=== PATIENT | male | born 1985 | race Caucasian/White ===

== ENCOUNTER 2023-04-11 23:25 | Emergency (ER) | payer OTHER, SELFPAY ==
[2023-04-11] MEDS: ONDANSETRON 2 MG/ML inj 4 MG IVP (23:50)
[2023-04-11] MEDS: 0.9 % SODIUM CHLORIDE 1000 ml 1,000 ML IV (23:50)
[2023-04-11 23:53] LABS: Lactate* 3.2 mmol/L (0.5-1.9)
[2023-04-11 23:55] LABS: Appearance Urine Clear (Clear); Bilirubin Urine Negative (Negative); Blood Urine Negative (Negative); Color Urine Yellow (Yellow); Glucose Urine 2+ (Negative); Ketones Urine 4+ (Negative); Leukocyte Esterase Urine Negative (Negative); Nitrite Urine Negative (Negative); Protein Urine Negative (Negative); Urobilinogen Urine 0.2 (0.2-1.0)
[2023-04-11 23:56] LABS: Basophils Percent Auto 0.3 % (0.0-3.0); Eosinophils Percent Auto 0.2 % (0.0-7.0); Hematocrit 47.8 % (37.0-53.0); Hemoglobin* 16.2 gm/dL (13.5-17.5); Immature Granulocytes Pct Auto 0.7 %; Lymphocytes Percent Auto 11.4 % (20-44); Mean Corpuscular HGB Conc 34 gm/dL (32-36); Mean Corpuscular Hemoglobin 30 pg (26-34); Mean Corpuscular Volume 89 fL (80-100); Monocytes Percent Auto 7.6 % (0.0-11.0); Neutrophils Percent Auto 79.8 % (42.0-72.0); Platelet Count* 230 K/uL (140-440); RDW Coefficient of Variation % 11.8 % (11.5-15.5); Red Blood Count 5.38 m/uL (4.30-5.90); Slide Review Reflex No; White Blood Count* 17.43 K/uL (4.50-11.00)
[2023-04-12] VITALS (8 sets, daily range): BP systolic 115–170; BP diastolic 60–92; PULSE 93–133; RESP 16–18; TEMP 36.6–36.7; O2SAT 96–99; BMI 24.3
[2023-04-12 00:02] LABS: RBC Urine 0-2 (0-2); WBC Urine 0-2 (0-5)
[2023-04-12 00:09] LABS: Chloride* 94 mmol/L (96-114); Potassium* 5.6 mmol/L (3.6-5.1); Sodium* 131 mmol/L (135-149)
[2023-04-12 00:12] LABS: Anion Gap 29 mEq/L (7-15); Blood Urea Nitrogen* 25 mg/dL (5-24); Estimated Glomerular Filt Rate 99 ml/min
--- NOTE | 2023-04-12 00:15 | ED.GENADULT ---
HPI - General Adult General Chief complaint: Diabetic Related Problem Stated complaint: Diabetic-vomiting -feeling ill Time Seen by Provider: 04/11/23 23:58 Source: patient Mode of arrival: ambulatory Limitations: no limitations History of Present Illness HPI narrative: 29-year-old male with known history of type 1 diabetes presents to the emergency department with a 4 hour history of nausea and vomiting. Admits to sporadic checking of blood sugars, none today. He reports good compliance with his Lantus but does not do a great job taking his mealtime insulins or use his sliding scale, especially since he is not regularly checking his blood sugars. He did not take any mealtime insulin with lunch or dinner today, but did take 15 units with breakfast though he did not check his sugar. No symptoms of infection. There is no fever, no dysuria, no productive cough. No known illness exposures or recent trauma. He does have a history of DKA in the past but it has been several years, he reports that the records would be in [place]. He denies any long-term complications from his diabetes such as chronic kidney disease, cardiovascular disease. He does report some retinopathy but he is not any type of treatment for it. It sounds as though he has been prescribed a statin in the past which she does not use. He does not have a continues glucose monitor or insulin pump. He suspects that he is in DKA as his primary symptom when this happens is nausea and vomiting. He does not report any abdominal pain, altered mental status or neurological changes. Past medical history notable for type 1 diabetes with retinopathy. Denies any other long-term health problems or recent surgeries. His only home medications are Lantus 36 units in the morning, NovoLog with meals. Typical mealtime doses are 10-15 units. Prescribed a statin, does not use. He does vape and drinks about 2 alcoholic beverages per week. ROS notable for the nausea and vomiting, otherwise denies times 12 systems. Related Data Home Medications Medication Instructions Recorded Confirmed insulin aspart U-100 100 unit/mL 1 sliding scale dose subcut 12/03/22 12/03/22 subcutaneous solution (Novolog USEASDIRECTD U-100 Insulin aspart) Previous Rx's Medication Instructions Recorded insulin glargine 100 unit/mL (3 36 unit (0.36 mL) subcut QAM #9 mL 12/03/22 mL) subcutaneous pen (Lantus Solostar U-100 Insulin) Allergies Allergy/AdvReac Type Severity Reaction Status Date / Time No Known Drug Allergies Allergy Verified 12/03/22 14:52 [facility] Medical History (Updated 04/12/23 @ 07:10 by Kimmy Youngblood MD) Type 1 diabetes mellitus with retinopathy ?E10.319 - Type 1 diabetes mellitus with unspecified diabetic retinopathy without macular edema (ICD-10) Surgical History (Updated 04/12/23 @ 00:20 by Landon Ho RN) No significant past surgical history Social History Smoking Status: Former smoker Second hand tobacco smoke exposure: No How often do you have a drink containing alcohol: never How often do you have six or more drinks on one occasion: Never AUDIT-C Alcohol total score: 0 Non-prescribed substance use: denies use Exam Const: Vital Signs, click to edit/add: Vital Signs - 24 hr 04/12/23 00:00 04/12/23 00:00 04/12/23 00:03 Temperature 98.1 F Pulse Rate [Right Pulse Oximeter] 133 H 125 H Respiratory Rate 18 18 Blood Pressure [Ri ght Upper Arm] 129/63 170/92 H Pulse Oximetry 99 99 99 Oxygen Delivery Me thod Room Air Room Air 04/12/23 00:30 04/12/23 01:00 04/12/23 02:00 Temperature 98.1 F 98.1 F 98.1 F Pulse Rate [Right Pulse Oximeter] 128 H 132 H 132 H Respiratory Rate 18 18 18 Blood Pressure [Ri ght Upper Arm] 126/60 124/71 118/74 Pulse Oximetry 99 99 99 Oxygen Delivery Me thod Room Air Room Air Room Air Documenting provider has reviewed patient's vital signs: yes Common normals: no apparent distress and alert General appearance: cooperative, comfortable and well kempt Orientation/consciousness: Yes awake HENMT: Common normals: normocephalic Head and scalp: normocephalic Face and sinus: normal facial exam Mouth: oral and palatal mucosa normal Throat: posterior oropharynx normal Eye: Common normals: conjunctivae normal General eye: normal appearance of both eyes Conjunctiva: conjunctiva(e) normal Neck & C-Spine: Common normals: full ROM and no lymphadenopathy Resp: Common normals: normal respiratory effort, no use of accessory muscles and clear to auscultation bilaterally Effort & inspection: able to speak in complete sentences Auscultation: clear to auscultation bilaterally Cardio: Common normals: regular rate, regular rhythm, S1 normal heart sound, S2 normal heart sound and no murmurs Rate: regular rate Rhythm: regular rhythm Heart sounds: S1 normal and S2 normal GI: Common normals: Normal to inspection, nondistended, normoactive bowel sounds present, soft to palpation, non-tender, no hepatosplenomegaly and no masses Palpation: soft and no hepatosplenomegaly Extremity: Common normals: normal to inspection and normal capillary refill General: normal exam except as noted Neuro: Sensorium/orientation: awake and alert Speech: speech normal Motor exam: strength 5/5 throughout and no movement abnormalities noted Psych: Appearance: well kempt Attitude: engaged Activity/motor behavior: appropriate eye contact Mood and affect: euthymic mood Insight: insight good Judgement: judgment good Skin: Common normals: no rashes or lesions noted General skin exam: no rashes or lesions noted Course Course ED Course: Normal saline bolus and Zofran were given prior to my arrival. by the time of my interview, he reports that he is already feeling better. Await labs. Reevaluation(s) Time of Reevaluation #1: 00:31 Reevaluation #1: As expected, initial workup showing diabetic ketoacidosis, severe acidosis with high blood sugar and electrolyte abnormalities. I do not see any indications for further infection workup despite the leukocytosis as it seems as though this is related to the DKA. Remainder of exam was normal, do not recommend imaging studies at this time. The powerhouse laborer has let me know that I cannot admit him to the hospital, as I do not have CCU availability tonight based on staffing ratios. I do feel comfortable managing a diabetic ketoacidosis patient in my emergency department with my prior skill set. Will begin insulin drip after bolus, 2 L of normal saline given. Recheck basic metabolic panel and venous blood gases every 2 hours, hourly Accu-Cheks. Suspect that we will have his acidosis corrected in gap closed around breakfast time. Time of Reevaluation #2: 05:12 Reevaluation #2: Patient continuing to do well. Was transitioned onto glucose drip at 3:00 a.m.. Blood sugars continue to fall well. Most recent blood sugar is just under 200, will reduce insulin drip to 4 units/hour, continue half-normal saline glucose plus potassium at 100 mL/hour, hourly Accu-Cheks and repeat basic metabolic panel and PH at 6:30 a.m.. Marked improvement and bicarb since the draw, gap may be closed at 6:30 a.m.. Time of Reevaluation #3: 08:28 Reevaluation #3: 630 labs reviewed, and I got close nicely, acidosis resolved. Patient has been feeling better. He tolerated a full breakfast, no return of nausea and vomiting. He has had excellent urine output. Blood sugars remain well controlled. He would like to go home. This is certainly reasonable. Will not benefit from admission at this point as he is no longer in DKA. Stressed the importance of insulin compliance. Rest for today, lots of fluids. Be aggressive with afternoon mealtime insulin, alarm symptoms reviewed. All questions answered. He has no additional concerns. Will follow-up with supervisor border department regarding continues glucose monitor and further management. Vital Signs Vital signs: Initial Vital Signs Pulse Rate 133 H 04/12/23 00:00 Pulse Rhythm Regular 04/12/23 00:00 Pulse Strength 3+ Normal 04/12/23 00:00 Respiratory Rate 18 04/12/23 00:00 Respiratory Effort Normal, Spontaneous, Non-Labored 04/12/23 00:00 Respiratory Depth Normal 04/12/23 00:00 Respiratory Pattern Normal 04/12/23 00:00 Blood Pressure 129/63 04/12/23 00:00 Blood Pressure Mean 85 04/12/23 00:00 Blood Pressure Position Supine 04/12/23 00:00 Pulse Oximetry 99 04/12/23 00:00 Oxygen Delivery Method Room Air 04/12/23 00:00 Vital Signs Pulse Rate 133 H 04/12/23 00:00 Respiratory Rate 18 04/12/23 00:00 Blood Pressure 129/63 04/12/23 00:00 Pulse Oximetry 99 04/12/23 00:00 Oxygen Delivery Method Room Air 04/12/23 00:00 Temperature 98.1 F 04/12/23 02:00 Pulse Rate 132 H 04/12/23 02:00 Respiratory Rate 18 04/12/23 02:00 Blood Pressure 118/74 04/12/23 02:00 Pulse Oximetry 99 04/12/23 02:00 Oxygen Delivery Method Room Air 04/12/23 02:00 Medical Decision Making Lab Data Lab results reviewed: Yes I reviewed the patient's lab results Lab results narrative: Leukocytosis likely related to DKA. Significant acidosis and hyperglycemia. Follow-up metabolic panels and blood gases showing expected improvement in pH initially, then improvement in both pH and bicarb. Transitioned onto glucose drip in conjunction with insulin drip which was also lowered to match glucose demand. This will be done until anion gap properly closes an acidosis resolved. Labs: Lab Results 04/11/23 04/11/23 04/12/23 Range/Units 23:40 23:46 00:17 WBC 17.43 H (4.50-11.00) K/uL RBC 5.38 (4.30-5.90) m/uL Hgb 16.2 (13.5-17.5) gm/dL Hct 47.8 (37.0-53.0) % MCV 89 (80-100) fL MCH 30 (26-34) pg MCHC 34 (32-36) gm/dL RDW Coeff of Ramez 11.8 (11.5-15.5) % Plt Count 230 (140-440) K/uL Neut % (Auto) 79.8 H (42.0-72.0) % Lymph % (Auto) 11.4 L (20-44) % [place] % (Auto) 7.6 (0.0-11.0) % Eos % (Auto) 0.2 (0.0-7.0) % Baso % (Auto) 0.3 (0.0-3.0) % Neut # (Auto) 13.90 H (1.7-7.0) K/uL Lymph # (Auto) 2.00 (0.90-2.90) K/uL [place] # (Auto) 1.30 H (0.00-0.90) K/UL Eos # (Auto) 0.00 (0.00-0.50) K/uL Baso # (Auto) 0.10 (0.00-0.30) K/uL Abs Immat Gran (auto) 0.10 (0.00-0.30) K/uL Imm/Tot Granulo (auto) 0.7 % VBG pH 7.090 L* (7.32-7.43) VBG pCO2 43 (40-50) mmHG VBG pO2 29.0 (25-47) mmHG VBG HCO3 13 L (21-28) mmol/L Sodium 131 L (135-149) mmol/L Potassium 5.6 H (3.6-5.1) mmol/L Chloride 94 L (96-114) mmol/L Carbon Dioxide 8 L* (20-32) mmol/L Anion Gap 29 H (7-15) mEq/L BUN 25 H (5-24) mg/dL Creatinine 1.0 (0.5-1.5) mg/dL Estimated Creat Clear 96.90 Estimated GFR 99 ml/min Glucose (60-115) mg/dL Lactate 3.2 H (0.5-1.9) mmol/L Calcium 10.0 (8.4-10.6) mg/dL Urine Color Yellow (Yellow) Urine Appearance Clear (Clear) Urine pH 5.0 (5.0-8.5) Ur Specific [place] 1.020 (1.000-1.030) Urine Protein Negative (Negative) Urine Glucose (UA) 2+ A (Negative) Urine Ketones 4+ A (Negative) Urine Blood Negative (Negative) Urine Nitrite Negative (Negative) Urine Bilirubin Negative (Negative) Urine Urobilinogen 0.2 (0.2-1.0) Ur Leukocyte Esterase Negative (Negative) Urine RBC 0-2 (0-2) Urine WBC 0-2 (0-5) Ur Squamous Epith Cells None (None-Few) Urine Bacteria None (None) Lab Acknowledgement Test Added 04/12/23 04/12/23 04/12/23 Range/Units 02:29 04:30 06:28 WBC (4.50-11.00) K/uL RBC (4.30-5.90) m/uL Hgb (13.5-17.5) gm/dL Hct (37.0-53.0) % MCV (80-100) fL MCH (26-34) pg MCHC (32-36) gm/dL RDW Coeff of Ramez (11.5-15.5) % Plt Count (140-440) K/uL Neut % (Auto) (42.0-72.0) % Lymph % (Auto) (20-44) % [place] % (Auto) (0.0-11.0) % Eos % (Auto) (0.0-7.0) % Baso % (Auto) (0.0-3.0) % Neut # (Auto) (1.7-7.0) K/uL Lymph # (Auto) (0.90-2.90) K/uL [place] # (Auto) (0.00-0.90) K/UL Eos # (Auto) (0.00-0.50) K/uL Baso # (Auto) (0.00-0.30) K/uL Abs Immat Gran (auto) (0.00-0.30) K/uL Imm/Tot Granulo (auto) % VBG pH 7.180 L* 7.262 L 7.324 (7.32-7.43) VBG pCO2 35 L 37 L 41 (40-50) mmHG VBG pO2 30.7 43.2 25.1 (25-47) mmHG VBG HCO3 13 L 17 L 21 (21-28) mmol/L Sodium 136 134 L 135 (135-149) mmol/L Potassium 4.9 4.6 5.0 (3.6-5.1) mmol/L Chloride 103 105 105 (96-114) mmol/L Carbon Dioxide 12 L 14 L 20 (20-32) mmol/L Anion Gap 21 H 15 10 (7-15) mEq/L BUN 23 19 17 (5-24) mg/dL Creatinine 0.9 0.7 0.7 (0.5-1.5) mg/dL Estimated Creat Clear 107.67 138.43 138.43 Estimated GFR 112 121 121 ml/min Glucose 342 H 215 H 172 H (60-115) mg/dL Lactate (0.5-1.9) mmol/L Calcium 9.1 8.7 8.9 (8.4-10.6) mg/dL Urine Color (Yellow) Urine Appearance (Clear) Urine pH (5.0-8.5) Ur Specific [place] (1.000-1.030) Urine Protein (Negative) Urine Glucose (UA) (Negative) Urine Ketones (Negative) Urine Blood (Negative) Urine Nitrite (Negative) Urine Bilirubin (Negative) Urine Urobilinogen (0.2-1.0) Ur Leukocyte Esterase (Negative) Urine RBC (0-2) Urine WBC (0-5) Ur Squamous Epith Cells (None-Few) Urine Bacteria (None) Lab Acknowledgement Discharge Plan Discharge Clinical Impression: Diabetic ketoacidosis Patient Disposition: Home w/ Parent or Adult Condition: Improved Instructions: Diabetic Hyperglycemia (ED) Additional Instructions: As we discussed, your electrolytes, acid-base balance and blood sugar were very out of line. Your given IV fluids, IV insulin, then transitioned on a combination of insulin plus glucose until your electrolytes and acid-base balance corrected. Because there were no beds in the hospital, we managed this in the emergency department. Thankfully, all of these corrected nicely with aggressive management. I am glad that your feeling better. You have already been given your basal insulin for the day and your breakfast insulin. I have given you a note off of work today. You should make an appointment with your supervisor border department to discuss a continuous glucose monitor as insurance has become a lot more relaxed about covering these. Insulin pumps are still quite a usman but I suspect you would benefit from 1 of those as well, especially with this recent episode of DKA. Your likely to be very fatigued today. Drink lots of fluids, no alcohol for the next few days. I would recommend that you go back to work tomorrow and follow your previously recommended insulin regimen. Activity Level: Activity as Tolerated Discharge Diet: Regular Prescriptions: No Action insulin aspart U-100 [Novolog U-100 Insulin aspart] 100 unit/mL solution 1 sliding scale dose subcut USEASDIRECTD insulin glargine [Lantus Solostar U-100 Insulin] 100 unit/mL (3 mL) insulin pen 36 unit subcut QAM Qty: 9 0RF Follow Up/Referrals: Provider,Not a Local [Primary Care Provider] - Stand Alone Forms: [employer] Info Instructions
[2023-04-12 00:16] LABS: Carbon Dioxide* 8 mmol/L (20-32)
[2023-04-12 00:22] LABS: HCO3 VBG 13 mmol/L (21-28); PCO2 VBG 43 mmHG (40-50)
[2023-04-12] MEDS: INSULIN INF 100 UNIT/100 ML 100 UNIT/100 ML BAG 6 UNIT IVPB (00:53)
[2023-04-12] MEDS: 0.9 % SODIUM CHLORIDE 1000 ml 1,000 ML IV (00:54)
--- NOTE | 2023-04-12 02:00 | ED.NURSE ---
pt. blood glucose 348. decreased insulin gtt down to 5units/hr. witnessed by 2nd RN.
[2023-04-12 02:31] LABS: HCO3 VBG 13 mmol/L (21-28); PCO2 VBG 35 mmHG (40-50); PO2 VBG 30.7 mmHG (25-47)
[2023-04-12 02:46] LABS: Chloride* 103 mmol/L (96-114); Potassium* 4.9 mmol/L (3.6-5.1); Sodium* 136 mmol/L (135-149)
[2023-04-12 02:49] LABS: Anion Gap 21 mEq/L (7-15); Carbon Dioxide* 12 mmol/L (20-32); Creatinine* 0.9 mg/dL (0.5-1.5); Est. Creatinine Clearance* 107.67; Estimated Glomerular Filt Rate 112 ml/min
[2023-04-12 02:50] LABS: Blood Urea Nitrogen* 23 mg/dL (5-24); Calcium* 9.1 mg/dL (8.4-10.6); Glucose* 342 mg/dL (60-115)
--- NOTE | 2023-04-12 03:08 | ED.NURSE ---
insulin gtt @ 5 units/hr. ivf fluids at 100cc/hr. pt. feeling better.
[2023-04-12] MEDS: 5 % DEX/0.45 SOD CHL+KCL20 mEq 1,000 ML 100 ML IV (03:10)
[2023-04-12] MEDS: 5 % DEX/0.45 SOD CHL+KCL20 mEq 1,000 ML 125 ML IV (04:06)
[2023-04-12 04:34] LABS: HCO3 VBG 17 mmol/L (21-28); PCO2 VBG 37 mmHG (40-50); PO2 VBG 43.2 mmHG (25-47); pH VBG 7.262 (7.32-7.43)
[2023-04-12 04:50] LABS: Chloride* 105 mmol/L (96-114); Potassium* 4.6 mmol/L (3.6-5.1); Sodium* 134 mmol/L (135-149)
[2023-04-12 04:53] LABS: Anion Gap 15 mEq/L (7-15); Blood Urea Nitrogen* 19 mg/dL (5-24); Carbon Dioxide* 14 mmol/L (20-32); Creatinine* 0.7 mg/dL (0.5-1.5); Est. Creatinine Clearance* 138.43; Estimated Glomerular Filt Rate 121 ml/min; Glucose* 215 mg/dL (60-115)
[2023-04-12 04:54] LABS: Calcium* 8.7 mg/dL (8.4-10.6)
[2023-04-12] MEDS: INSULIN INF 100 UNIT/100 ML 100 UNIT/100 ML BAG IVPB ×2 (05:03→06:03)
[2023-04-12] MEDS: 5 % DEX/0.45 SOD CHL+KCL20 mEq 1,000 ML 150 ML IV (06:04)
[2023-04-12 06:31] LABS: HCO3 VBG 21 mmol/L (21-28); PCO2 VBG 41 mmHG (40-50); PO2 VBG 25.1 mmHG (25-47); pH VBG 7.324 (7.32-7.43)
[2023-04-12 06:51] LABS: Anion Gap 10 mEq/L (7-15); Blood Urea Nitrogen* 17 mg/dL (5-24); Calcium* 8.9 mg/dL (8.4-10.6); Carbon Dioxide* 20 mmol/L (20-32); Chloride* 105 mmol/L (96-114); Creatinine* 0.7 mg/dL (0.5-1.5); Est. Creatinine Clearance* 138.43; Estimated Glomerular Filt Rate 121 ml/min; Glucose* 172 mg/dL (60-115); Sodium* 135 mmol/L (135-149)
--- NOTE | 2023-04-12 08:48 | ED.NURSE ---
Patient tolerated breakfast. Blood sugar was 222 after insulin. Patient has glucometer at home and insulin at home. Reviewed instructions with patient. All questions answered. Left via ambulatory.
== END 2023-04-12 08:51 | disposition home or self-care (01) ==
PROVIDERS: Emergency Provider Family Medicine
DX: E11.10 Type 2 diabetes mellitus with ketoacidosis without coma (principal)
CPT/HCPCS: 36415; 80048; 81001; 82803; 82962; 83605; 85025; 94761; 96365; 96366; 96375; 99285; 99291; J2405; J3480; J3590; J7030